=== PATIENT | female | born 1985 | race Caucasian/White ===

== ENCOUNTER 2017-05-06 17:23 | Emergency (ER) | payer OTHER ==
[~2017-05-06] VITALS: Ht 152.4 cm; Wt 102.1 kg
[~2017-05-06 17:23] MED LIST: ASPIR 8181 MG PO; BUTALB-APAP-CA1 EACH PO; IBUPROFEN 800800 MG PO; LIDODERM 5%1 PATC1 TRANSDERM; NEURONTIN600 MG PO; NORCO 5-325 TA1 EAC1 PO; OMEPRAZOLE 20 M20 M1 PO; OMEPRAZOLE20 M1 PO; PERCOCET PO; SPRINTEC1 EACH PO; ZOLOFT50 MG PO
[2017-05-06 17:31] VITALS: BP 187/106
[2017-05-06] MEDS ORDERED: XANAX 0.5 MG0.5 MG PO (17:34)
[2017-05-06] MEDS ORDERED: LEXAPRO20 MG PO (17:34)
[2017-05-06] MEDS ORDERED: FLEXERIL PO (18:03)
[2017-05-06] MEDS ORDERED: LIDODERM1 EACH TOP (18:04)
== END 2017-05-06 18:09 | disposition home or self-care (01) ==
LOC: M.ERS 17:23
DX: M54.40 Lumbago with sciatica, unspecified side (principal); G89.29 Other chronic pain; R51 Headache